=== PATIENT | female | born 1940 | race Caucasian/White ===

== ENCOUNTER 2024-06-13 09:43 | Emergency (ER) | payer MEDICARE, BC, SELFPAY ==
[2024-06-13] VITALS (7 sets, daily range): BP systolic 144–184; BP diastolic 63–87; PULSE 70–106; RESP 16–20; TEMP 36.4–37.1; O2SAT 95–100; BMI 28.7
--- NOTE | 2024-06-13 10:19 | PD.EDFALL ---
ED Fall Injury RME/HPI General Chief Complaint: Fall Stated Complaint: FALL Time Seen by Provider: 06/13/24 10:13 Arrival date/time: 06/13/24 09:43 RME / HPI RME / HPI Narrative: DR. BOLTON MAIN ED EVALUATION: This section includes all my notes and documentations, including HPI, PE, and ED course.? Jose Roberto Bolton MD HPI: 83 year old female with past medical history significant for chronic back pain 2 years from arthritis, sees Dr. Ley, hypertension, hyperlipidemia, reflux disease, section, cholecystectomy, left carpal tunnel release, right knee replacement, sinus surgery, laparotomy for tubal and appendectomy in the past presents to the Emergency Department BIB with complaint of upper mid back pain secondary to falling out of bed today at 730, a couple of hours ago. She states she landed on her trailer floor . Symptoms are moderate. Denies any headache, neck pain, loss of consciousness, rib cage pain, bleeding, or lower back pain. No other complaints reported. ROS: All negative except as documented in HPI. Physical Exam: General:? Alert and oriented.? In obvious pain. Eyes:? Conjunctivae and lids clear. ENT: No signs of head trauma. Neck:? Supple. No tenderness. Heart:? RRR. Lungs:? No respiratory distress.? Good air movement.? No rhonchi, wheezing, rales.? Chest: No tenderness. Abdomen:? Soft and nontender.? Back: Spinal tenderness noted. Legs:? No clubbing, cyanosis, edema. Skin:? Warm and dry.? Neuro:? Alert and oriented X 3.? Cranial nerves II through XII grossly normal. No peripheral motor deficits. Musculoskeletal: All major joints and long bones are not tender with no limited range of motion. I reviewed all diagnostic test results. My review of the CT reports is T12 and T4 fractures. Blood tests and urine tests unremarkable. At this point, diagnoses include Fractures of T12 and T4 vertebra Treatment here included pain management. I discussed the case with Dr. Khan ([facility] Neurosurgeon).? About the presentation and exam and diagnostics and treatments here.? And need of further care there. Will accept the patient. Jose Roberto Bolton MD Related Data Home Medications ?Medication ?Instructions ?Recorded ?Confirmed hydrochlorothiazide 12.5 mg capsule 25 mg PO QDAY 05/20/17 12/01/23 Held on 12/05/23. Instructions: Resume on 12/19/23. Hold hydrochlorothiazide due to hyponatremia, repeat CMP in 1 week after discharge, resume per PCP losartan 100 mg tablet 100 mg PO QDAY 05/20/17 12/01/23 aspirin 81 mg tablet,delayed 81 mg PO QDAY 12/20/17 12/01/23 release (Aspir-) atorvastatin 20 mg tablet 20 mg PO QDAY 12/20/17 12/01/23 celecoxib 200 mg capsule (Celebrex) 200 mg PO QDAY 12/20/17 12/01/23 cetirizine 10 mg tablet (Aller-Jeronimo) 5 mg PO QDAY 12/20/17 12/01/23 docusate sodium 50 mg capsule 50 mg PO QDAY 12/20/17 12/01/23 (Stool Softener) melatonin 1 mg tablet 0.5 mg PO HS PRN Sleep 12/20/17 12/01/23 multivitamin with minerals-folic 1 tab PO QDAY 12/20/17 12/01/23 acid 200 mcg chewable tablet (Centrum Vitamints) naproxen sodium 220 mg tablet 220 mg PO BID PRN Pain 12/20/17 12/01/23 (Aleve) pantoprazole 40 mg tablet,delayed 40 mg PO QDAY 12/20/17 12/01/23 release clonazepam 0.25 mg disintegrating 0.25 mg PO 3XD 05/08/18 12/01/23 tablet vortioxetine 10 mg tablet 10 mg PO QDAY 05/08/18 05/08/18 (Trintellix) Previous Rx's ?Medication ?Instructions ?Recorded hydrocodone 5 mg-acetaminophen 325 1 tab PO BID PRN pain #10 tabs 10/23/23 mg tablet albuterol sulfate 90 mcg/actuation 2 puff inhalation Q6H PRN 12/05/23 aerosol inhaler shortness of breath or wheezing #6.7 grams Allergies Allergy/AdvReac Type Severity Reaction Status Date / Time erythromycin base Allergy Severe Abdominal Verified 11/30/23 14:37 Pain Course Quality Measures none Orders Category Date Time Status M[place] to [place] Routine Care 06/13/24 12:23 Ordered Saline [Insert IV] NOW Care 06/13/24 12:23 Completed Referral - Outplacement Consultant Stat Cons 06/13/24 12:21 Active Transfer to another facility [Transfer/Discharge] Stat Discharge 06/13/24 17:[address] chest wo con Stat Exams 06/13/24 10:[address] thoracic spine wo con Stat Exams 06/13/24 10:47 Completed CBC Stat Lab 06/13/24 12:30 Completed CMP [Comprehensive Metabolic Panel] Stat Lab 06/13/24 12:30 Completed Magnesium Stat Lab 06/13/24 12:30 Completed PT [Prothrombin Time with INR] Stat Lab 06/13/24 12:30 Completed PTT [Partial Thromboplastin Time] Stat Lab 06/13/24 12:30 Completed UA, C/S IF [Urinalysis, C/S if Indicated] Stat Lab 06/13/24 21:00 Completed HYDROcodone*/APAP 5/325 [[place] 5/325] Med 06/13/24 10:46 Discontinued 2 tab PO X1 ONE HYDROmorphone INJ [Dilaudid Inj] Med 06/13/24 17:13 Discontinued 0.5 mg IVP X1 ONE LORazepam [Ativan Inj] Med 06/13/24 14:01 Discontinued 0.5 mg IVP X1 ONE Morphine Inj Med 06/13/24 16:56 Discontinued 4 mg IVP X1 ONE Ondansetron Inj [Zofran Inj] Med 06/13/24 17:13 Discontinued 4 mg IV X1 ONE Vital Signs Vital signs: Vital Signs Temperature 97.7 F 06/13/24 10:10 Pulse Rate 70 06/13/24 10:10 Respiratory Rate 18 06/13/24 10:10 Blood Pressure 144/69 H 06/13/24 10:10 Pulse Oximetry (%) 97 06/13/24 10:10 Oxygen Delivery Method Nasal Cannula 06/13/24 10:10 Oxygen Flow Rate 2 06/13/24 10:10 Fall MDM Narrative MDM Narrative:: Kristina Cruz am scribing for and in the presence of Dr. Bolton. Patient data External records reviewed:: [facility] previous records (Reviewed last admission discharge dated 12/05/23 patient admitted for the following: fall) and EMS form Clinical information provided by:: patient and EMS Social determinants that could affect healthcare access:: none Patient has the following chronic illnesses:: Chronic back pain 2 years from arthritis, sees Dr. Ley. Hypertension, hyperlipidemia, reflux disease. section, cholecystectomy, left carpal tunnel release, right knee replacement, sinus surgery, laparotomy for tubal and appendectomy in the past. Denies any diabetes history. How is presenting disease/condition affected by chronic disease/condition?: exacerbated by Evaluation data The following diagnostics were reviewed and interpreted by me:: radiology exam(s) Lab and/or radiology exams considered but not ordered:: none Interpretation Summary: Fractures of T12 and T4 vertebra Medications / Prescriptions Medications or Prescriptions considered but not ordered:: none Medication administrations:: Medication Administration History Discontinued Medications Hydrocodone Bitart/Acetaminophen (Hydrocodone/Apap 5/325 Tablet) 2 tab PO X1 ONE Stop: 06/13/24 10:47 Last Admin: 06/13/24 10:52 Dose: 2 tab Documented By: MAYCOL Hydromorphone HCl (Hydromorphone Inj 2 Mg/Ml Vial) 0.5 mg IVP X1 ONE Stop: 06/13/24 17:14 Last Admin: 06/13/24 17:33 Dose: 0.5 mg Documented By: MAYCOL Lorazepam (Lorazepam 2 Mg/Ml Vial) 0.5 mg IVP X1 ONE Stop: 06/13/24 14:02 Last Admin: 06/13/24 14:19 Dose: 0.5 mg Documented By: HUNTER Morphine Sulfate (Morphine Sulf Inj 10 Mg/Ml Vial) 4 mg IVP X1 ONE Stop: 06/13/24 16:57 Last Admin: 06/13/24 18:34 Dose: Not Given Documented By: MAYCOL Non-Admin Reason: cancelled by provider Ondansetron HCl (Ondansetron Inj 2 Mg/Ml Inj 2 Ml) 4 mg IV X1 ONE; Protocol Stop: 06/13/24 17:14 Last Admin: 06/13/24 17:34 Dose: 4 mg Documented By: MAYCOL Pain management Consultations Consultation(s) initiated? (list below): No Diagnosis Fall Differential Diagnosis: syncope, compression fracture, concussion with loss of consciousness, concussion without loss of consciousness and other (thoracic spine fracture, thoracic spine contusion) Most likely diagnosis given after review of the tests above:: Fractures of T12 and T4 vertebra Admission Indicated Admission indicated?: not indicated Explain why admission is indicated or not indicated:: Patient needs higher level of care and will be transferred. Admission Request Was there a request for admission?: No Disposition Plan Disposition Plan: Transfer Discharge Plan Plan Patient Disposition: [facility] ([place], [place]) Facility Pt Being Transferred to: [facility] Service Needed for Transfer: Neurosurgery Prescriptions/Referrals Prescriptions/Med Rec: No Action losartan 100 mg tablet 100 mg PO QDAY hydrochlorothiazide 12.5 mg capsule 25 mg PO QDAY clonazepam 0.25 mg Tablet,Disintegrating 0.25 mg PO 3XD vortioxetine [Trintellix] 10 mg Tablet 10 mg PO QDAY celecoxib [Celebrex] 200 mg Capsule 200 mg PO QDAY atorvastatin 20 mg Tablet 20 mg PO QDAY cetirizine [Aller-Jeronimo] 10 mg Tablet 5 mg PO QDAY Stool Softener 50 mg Capsule 50 mg PO QDAY aspirin [Aspir-81] 81 mg Tablet,Delayed Release (Dr/Ec) 81 mg PO QDAY pantoprazole 40 mg Tablet,Delayed Release (Dr/Ec) 40 mg PO QDAY naproxen sodium [Aleve] 220 mg Tablet 220 mg PO BID PRN (Reason: Pain) melatonin 1 mg Tablet 0.5 mg PO HS PRN (Reason: Sleep) multivit with min-folic acid [Centrum Vitamints] 200 mcg Tablet,Chewable 1 tab PO QDAY albuterol sulfate 90 mcg/actuation HFA aerosol inhaler 2 puff inhalation Q6H PRN (Reason: shortness of breath or wheezing) Qty: 6.7 0RF hydrocodone-acetaminophen 5-325 mg tablet 1 tab PO BID MDD 10mg PRN (Reason: pain) Qty: 10 0RF Referrals: Milagros Smith MD [Primary Care Provider] - In 1 week Problem List Clinical Impression: Fracture of T12 vertebra, Fracture of T4 vertebra Patient/Caregiver Discharge Instructions Print Language: Romanian Stand Alone Forms: Mayra Award Info., Patient Portal Info Letter
--- NOTE | 2024-06-13 10:47 | XR_ITS ---
Examination: CT chest, without intravenous contrast. Sagittal and coronal 2-D reconstructions. Exam date and time: June 13, 2024 1106 hours INDICATIONS: Patient fell today with injury to the chest, chest pain CTDI:vol (mGy) 15.2 DLP: (mGycm) 486 Technique: Multiple 3.0 mm axial sections of the chest to been obtained. Bone and lung density settings are obtained. Sagittal and coronal 2-D reconstructions have been obtained. Low dose protocols were performed. One or more of the following dose reduction techniques were used; automated exposure control, adjustment of the mA and/or KV according to patient size, use of iterative reconstruction technique. Findings: Thoracic aorta pulmonary arteries intact Mild to probably calcification No hemopericardium Severe bilateral pulmonary fibrosis No pneumothorax Please see the CT thoracic spine examination for description of acute compression fractures T12, T4 Significant intra and extrahepatic biliary tract obstruction, common hepatic duct 22 mm with possible 8 mm stone in the distal common bile duct IMPRESSION: No hemopericardium pneumothorax. Severe bilateral pulmonary fibrosis Please see the CT thoracic spine examination for description of acute compression fractures T12, T4 Marked extrahepatic biliary tract obstruction with possible 8 mm stone in the distal common bile duct Recommend MRCP follow-up
--- NOTE | 2024-06-13 10:47 | XR_ITS ---
Examination: CT thoracic spine, without contrast. 2-D sagittal reconstructions. 2-D coronal reconstructions. 3-D reconstructions. Date and time of exam:June 13, 2024 1106 hours INDICATIONS: Patient fell today with injury to the back, back pain CTDI: vol (mGy):20.5 DLP: (mGycm):666 Technique: Multiple 1.25 mm axial sections of the thoracic spine without intravenous contrast have been obtained. 2-D sagittal and coronal reconstructions have been obtained. 3-D reconstructions have been obtained. Low dose protocols were performed. One or more of the following dose reduction techniques were used; automated exposure control, adjustment of the mA and/or KV according to patient size, use of iterative reconstruction technique. Findings: Severe osteopenia Severe acute appearing compression fracture T12, reduction in height 90% Retropulsion of the posterior superior margin of this vertebral body 3 mm Acute compression T4, depression superior endplate Milder chronic compression T2 IMPRESSION: Severe acute compression fracture T12 Moderate acute compression fracture T4
[2024-06-13] MEDS: HYDROcodone/APAP 5/325 TABLET 2 TAB PO (10:52)
--- NOTE | 2024-06-13 12:21 | PC.CC ---
Addendum entered by Michael Tim RN 06/13/24 17:50: 1749 called [facility], spoke to Mora and informed pharmacy picking tech time is 2200. 1747 called ED charge nurse and informed pharmacy picking tech time is 2200. Addendum entered by Michael Tim RN 06/13/24 17:47: 1742 sent paperwork to [facility]. Called [facility], spoke to [facility] and set up the transport. The earliest pharmacy picking tech time available is 2200. Addendum entered by Michael Tim RN 06/13/24 17:46: 1735 transfer packet is complete with CD inside including all signatures. Transfer packet and number to call for report given to charge nurse. Addendum entered by Michael Tim RN 06/13/24 17:08: 1705 spoke to Mora at [facility]. Pt is accepted for ED to ED transfer. Accepted by Lewis Khan. Call report at [phone]. Addendum entered by Michael Tim RN 06/13/24 17:07: 1703 call from Mora at [facility]. Dr. Khan is on the line and want to speak to Dr. Bolton for peer to peer. Conference call connected again. 1645 received call from Mora at [facility]. Dr. Khan is on the line and want to speak to Dr. Bolton for peer to peer. Conference call connected. 1638 received call from Mora at [facility]. She wants to speak to Dr. Bolton. Conference call connected. She tried to connect Lewis Egan neuro-surgeon on the line for peer to peer. But unable to connect. Addendum entered by Michael Tim RN 06/13/24 17:01: 1629 Received call from Evelyne at [facility]. She stated per Dr. Min neurosurgeon since pt is not having neurological symptoms, pt doesn't need emergent transfer. The recommendations are place back brace, pain management and pt can follow PCP for outpatientn neurosurgery referral. Therefore, transfer is declined. Addendum entered by Michael Tim RN 06/13/24 16:17: 1616 Called [facility] to initiate the transfer, left VM. Addendum entered by Michael Tim RN 06/13/24 15:44: 1540 called [facility], spoke to Evelyne and initiated the transfer. Evelyne wants to speak with Dr. Bolton. Conference call connected. Addendum entered by Michael Tim RN 06/13/24 15:26: 1525 clinicals sent to [facility] and [facility]. Addendum entered by Michael Tim RN 06/13/24 15:21: 1518 Due to working on multiple transfers in ED, unable to work on it right away. Original Note: received call from Dr. Bolton that pt needs to be transferred for T12 compression fx needs neuro-surgery or spinal surgery services.
[2024-06-13 12:53] LABS: Basophils # (Auto) 0.1 Thou/mm3 (0.0-0.2); Basophils % (Auto) 0 % (0-2.5); Eosinophils # (Auto) 0.1 Thou/mm3 (0.0-0.5); Eosinophils % (Auto) 1 % (0-10); Hematocrit 38.5 % (36.0-46.0); Hemoglobin 13.1 g/dL (12.0-16.0); Immature Granulocytes % (Auto) 1 % (0-0); Immature Granulocytes Auto 0.06 Thou/mm3 (0.00-0.00); Lymphocytes # (Auto) 1.2 Thou/mm3 (1.0-4.8); Lymphocytes % (Auto) 10 % (10-50); Mean Corpuscular Hemoglobin 33.3 pg (25.0-35.0); Mean Corpuscular Volume 98 fL (80-100); Monocytes # (Auto) 0.7 Thou/mm3 (0.0-0.8); Monocytes % (Auto) 6 % (0-12); Neutrophils # (Auto) 9.7 Thou/mm3 (1.8-7.7); Neutrophils % (Auto) 82 % (37-80); Nucleated Red Blood Cell % 0 /100 WBC (0); Platelet Count 225 Thou/mm3 (140-440); RDW Standard Deviation 45.1 fL (36.4-46.3); Red Blood Count 3.93 Miln/mm3 (4.00-5.20); White Blood Count 11.9 Thou/mm3 (3.6-11.0)
[2024-06-13 13:05] LABS: INR 1.1 (0.9-1.3); Partial Thromboplastin Time 25.4 Seconds (22.0-36.0); Prothrombin Time 11.8 Seconds (9.0-12.2)
[2024-06-13 13:09] LABS: Alanine Aminotransferase 17 U/L (10-49); Albumin, Serum 4.6 gm/dL (3.4-4.8); Albumin/Globulin Ratio 1.4 (1.2-2.2); Alkaline Phosphatase 77 U/L (46-116); Anion Gap 9 (7-16); Aspartate Amino Transferase 36 U/L (0-34); BUN/Creatinine Ratio 13 Ratio (12-20); Bilirubin,Total 0.7 mg/dL (0.3-1.2); Blood Urea Nitrogen 13 mg/dL (9-23); Calcium 10.2 mg/dL (8.3-10.6); Calcium (Corrected) 10.2 mg/dL (8.5-10.1); Chloride 98 mMol/L (98-107); Estimated Creatinine Clearance 40.9 mL/min (>60); Globulin 3.2 gm/dL (2.3-3.5); Glucose 108 mg/dL (74-106); Osmolality,Calculated 271 (275-295); Potassium 4.3 mMol/L (3.4-5.1); Sodium 135 mMol/L (136-145); Total Protein 7.8 gm/dL (5.7-8.2); eGFR 56 See Note
[2024-06-13] MEDS: LORazepam 2 MG/ML VIAL 0.5 MG IVP (14:19)
[2024-06-13] MEDS: HYDROmorphone INJ 2 MG/ML VIAL 0.5 MG IVP (17:33)
[2024-06-13] MEDS: ONDANSETRON INJ 2 MG/ML INJ 2 ML 4 MG IV (17:34)
[2024-06-13 21:15] LABS: Collection Type, Urine Clean Catch
[2024-06-13 21:47] LABS: Bilirubin,Urine Negative (Negative); Blood,Urine Negative (Negative); Clarity,Urine Clear (Clear/Hazy); Color,Urine Lt-Yellow (Lt Yel-Yel); Culture Indicated,Urine Not Indicated; Glucose, Urine Negative (Negative); Ketones,Urine Trace (Negative); Leukocyte Esterase,Urine Negative (Negative); Nitrite,Urine Negative (Negative); PH,Urine 6.5 (5.0-7.0); Protein,Urine Negative (Neg - Trace); RBC,Urine 2 /hpf (0-3); Specific Gravity,Urine 1.014 (1.001-1.035); Squamous Epithelial Cell,Urine < 1 /hpf (0-5); Urobilinogen,Urine Negative mg/dL (0.0-1.0); WBC,Urine 1 /hpf (0-5)
--- NOTE | 2024-06-13 21:51 | PC.NURSE ---
report was called to [facility] ER. Report also given to transfering EMS.
== END 2024-06-13 21:13 | disposition short-term general hospital (02) ==
PROVIDERS: Emergency Provider Emergency Medicine; PCP Family Medicine
DX: S22.089A Unspecified fracture of T11-T12 vertebra, initial encounter for closed fracture (principal); S22.049A Unspecified fracture of fourth thoracic vertebra, initial encounter for closed fracture; W06.XXXA Fall from bed, initial encounter; I10 Essential (primary) hypertension; E78.5 Hyperlipidemia, unspecified; K21.9 Gastro-esophageal reflux disease without esophagitis
CPT/HCPCS: 36415; 71250; 72128; 80053; 81001; 83735; 85025; 85610; 85730; 96374; 96375; 99285; J2060; J2405; J3490; A9270